=== PATIENT | female | born 1945 | race Caucasian/White ===

== ENCOUNTER → 2017-01-23 | Outpatient (REF) | payer MEDICARE, OTHER ==
[2017-01-23 17:43] LABS: MEAN CORPUSCULAR HEMOGLOBIN 28.8 pg (27.0-33.0); MEAN CORPUSCULAR HGB CONC 33.2 g/dl (32.0-36.5); MEAN CORPUSCULAR VOLUME 86.7 fl (80.0-96.0); PLATELET COUNT, AUTOMATED 355 k/mm3 (150-450); RED CELL DISTRIBUTION WIDTH 12.7 % (11.5-14.5); WHITE BLOOD COUNT 8.6 K/mm3 (4.0-10.0)
[2017-01-23 21:19] LABS: BASOPHILS 1 % (0-4); EOSINOPHILS 1 % (0-5)
[2017-01-23 21:25] LABS: ERYTHROCYTE SEDIMENTATION RATE 12 mm/hr (0-30)
== END ==
LOC: M LABDRAW1 15:44
PROVIDERS: ATTEND Orthopaedic Surgery
DX: M48.06 Spinal stenosis, lumbar region (principal)

== ENCOUNTER 2018-07-14 08:09 | Outpatient (RCR) | payer MEDICARE, OTHER ==
[2018-07-14] MEDS ORDERED: ASPI81TA85 PO (09:09)
[2018-07-14] MEDS ORDERED: AMLO10TA4 PO (09:09)
[2018-07-14] MEDS ORDERED: PLAV1TAB2 PO (09:09)
[2018-07-14] MEDS ORDERED: LEVO25TA5 PO (09:09)
[2018-07-14] MEDS ORDERED: VENTAER INH (09:09)
[2018-07-14] MEDS ORDERED: ATOR40TA75 PO (09:09)
[2018-07-14] MEDS ORDERED: METO37.5 PO (09:09)
[2018-07-14] MEDS ORDERED: MUCI600T31 PO (09:09)
[2018-07-14] MEDS ORDERED: NITR0.4D6 TD (09:09)
[2018-07-14] MEDS ORDERED: HYDR12.55 PO (09:09)
[2018-07-14] MEDS ORDERED: K-TA10TA2 PO (09:09)
[2018-07-14] MEDS ORDERED: ZYRTTAB8 PO (09:09)
[2018-07-14] MEDS ORDERED: TIOT18INH INH (09:09)
[2018-07-14] MEDS ORDERED: NEXI40CA PO (09:09)
[2018-07-14] MEDS ORDERED: VITA100067 PO (09:09)
[2018-07-14] MEDS ORDERED: SYMB16INH INH (09:09)
[2018-07-14] MEDS ORDERED: BUDE180INH INH (09:09)
[2018-07-14] MEDS ORDERED: SING10TA32 PO (09:09)
--- NOTE | 2018-07-14 10:18 | CARECAPL ---
Assessment Account #s: Initial Assessment General Diagnoses: Stent Date of event: Nov 03, 2017 Allergies: Coded Allergies: Atrovent (Verified Allergy, Severe, difficulty breathing, 07/14/18) Levaquin (Verified Allergy, Intermediate, joint pain, 07/14/18) Statins (Verified Allergy, Intermediate, leg cramps, 07/14/18) Penicillins (Verified Allergy, Mild, rash, 07/14/18) Vasotec (Verified Allergy, Mild, rash, 07/14/18) Date Entered Program: Jul 14, 2018 Risk strat for cardiac event: Low Exercise Date: Jul 14, 2018 Assessment: Initial Assessment Exercise Prescription Plan educate and increase endurance through exercise Modalities initiated: Nustep (mets 2.8 RPE 2), Arm Aerometer (mets 2.3 RPE 2), Dumbells (will add), Recumbent Bike (mets 3.2 RPE 2) Frequency: 2 Duration (Minutes) 30-60 minutes total exercise a day. 15-20 work intervals in minutes. prn rest intervals in minutes. Functional Capacity Goal Sustained Metabolic Equivalent of a task (MET) goal of 3.75-4.5 for 15-20 minutes. Intensity: 3-Moderate Progression (METS) Increase by: 0.5 METS every: 3-5 sessions Angina with ex: No Target Heart Rate rest + 35-40 Resistance Training: Yes Weight (pounds): 1 (will add 1 lb weights) Hypertension: Yes Hypertension controlled with: Medication Resting 160/83 Peak Exercise BP 160/80 Meds norvasc and metoprolol Medications Scheduled (Zyrtec-D Allergy/Congesti 5-120 mg), 1 TAB PO DAILY, (Reported) Amlodipine Besylate (Amlodipine Besylate), 10 MG PO DAILY, (Reported) Aspirin (Aspir-81), 81 MG PO DAILY, (Reported) Atorvastatin Calcium (Atorvastatin Calcium), 40 MG PO DAILY, (Reported) Budesonide (Pulmicort Flexhaler), 2 PUFF INH BID, (Reported) Budesonide/Formoterol (Symbicort 160-4.5 Mcg/Act), 2 PUFF INH BID, (Reported) Clopidogrel Bisulfate (Plavix), 75 MG PO DAILY, (Reported) Esomeprazole Magnesium Trihydr (Nexium), 40 MG PO BID, (Reported) Guaifenesin (Mucinex), 1,200 MG PO BID, (Reported) Hydrochlorothiazide (Hydrochlorothiazide), 12.5 MG PO DAILY, (Reported) Levothyroxine Sodium (Synthroid), 37.5 MCG PO DAILY, (Reported) Metoprolol Tartrate (Metoprolol Tartrate), 25 MG PO BID, (Reported) Montelukast Sodium (Singulair), 10 MG PO DAILY, (Reported) Nitroglycerin (Nitroglycerin), 0.4 MG TD DAILY, (Reported) Potassium Chloride (K-Tab), 2 TAB PO DAILY, (Reported) Tiotropium [place] Monohydrate (Spiriva Handihaler), 1.25 MCG INH DAILY, (Reported) Vitamin D (Vitamin D), 5,000 UNIT PO DAILY, (Reported) Scheduled PRN Albuterol Sulfate (Ventolin Hfa), 2 PUFF INH Q4-6HP PRN for wheezing, (Reported) Target Goals Individual exercise Rx (1) BP 140/90 or 130/80 if DM or CKD (1) Aerobic active 30+min 5 days per week (1) Nutrition Date: Jul 14, 2018 Assessment: Initial Assessment Lipid- med/supplement atorvastatin Diabetes Diabetes: No Monitor Blood Sugar at home: No Weight Management Weight (lbs): 165.2 Height (inches): 62 Waist Circumference (Inches): 39 BMI: 30.2 Weight goal: 135 Special Diet: low salt, low-fat Vitamin/Supplements: Multivitamin Alcohol: none Diet Access Tool: Rate your plate Score: 52 Intervention Elevating Grader Operator Consult: No Nurse/patient discussion: Yes Dietary Goals eat healthier portions and healthier foods Diet Class: No Education Eating Healthy Target goal LDL-C<100 if triglycerides are >200 Non-HDL-C should be <130 (1) LDL-C<70 for high risk patients (4) HbA1c<7% (1) BMI<25 Waist cir<40in M/<35in F (1) Education Date: Jul 14, 2018 Assessment: Initial Assessment Learning Barriers: cognitive (age related) Knowledge Test Score: 7 Quit: never smoked Tobacco Use Smokeless tobacco: No Intervention Referral to smoking cessation: No Individual education and couns: No Tobacco Adjunct: No Education class schedule given: No Attended education classes: No Education: CAD, Risk factors, med compliance, cardiac A&P, Angina S/S, Sexuality Target Goals Complete cessation of tobacco use (1). Psychosocial Date: Jul 14, 2018 Assessment: Initial Assessment Psych Test (Initial/Discharge) Tool Used: CESD Score: 0 Intervention Physician Consult: No Physician Referral: No Psychotropic medication none Stress Management Class: Yes Uses Stress Management Skills: Yes Education Education: Coping Techniques, S/S depression, Relaxation Techniques Target Goal Assess presence or absence of depression using a valid screening tool (1). Maximize coping skills (2). Positive support system (2). Patient/Program Goal Preventative Medication: Yes Aspirin, Yes Clopidogrel, Yes Beta blockade, Yes Statin/OTR lipid Lowering Fall Risk Assess: No Provider Assessment Session Number: 1 Provider Assessment: Proceed with rehab Lisseth Javier RN Jul 14, 2018 10:18
== END 2018-07-28 ==
LOC: M CR 08:09
PROVIDERS: ATTEND Family Medicine
DX: Z98.61 Coronary angioplasty status (principal)

== ENCOUNTER → 2018-08-01 | Outpatient (CLI) | payer MEDICARE, OTHER ==
[~2018-08-01] MED LIST: AMLO10TA5 PO; ASPI81TA85 PO; ATOR40TA75 PO; BUDE180INH INH; HYDR12.55 PO; K-TA10TA2 PO; LEVO25TA5 PO; METO37.5 PO; MUCI600T31 PO; NEXI40CA PO; NITR0.4D6 TD; PLAV1TAB2 PO; SING10TA32 PO; SYMB16INH INH; TIOT18INH INH; VENTAER INH; VITA100067 PO; ZYRTTAB8 PO
[2018-08-01 13:32] LABS: BLOOD UREA NITROGEN 20 MG/DL (7-18); CALCIUM LEVEL 9.2 MG/DL (8.8-10.2); CARBON DIOXIDE LEVEL 28 MEQ/L (21-32); CHLORIDE LEVEL 97 MEQ/L (98-107); CREATININE FOR GFR 0.72 MG/DL (0.55-1.30); GLOMERULAR FILTRATION RATE > 60.0 (>39); GLUCOSE, FASTING 87 MG/DL (70-100); POTASSIUM SERUM 3.5 MEQ/L (3.5-5.1); SODIUM LEVEL 134 MEQ/L (136-145)
== END ==
LOC: M LAB 11:47
PROVIDERS: ATTEND Family Medicine
DX: E03.9 Hypothyroidism, unspecified (principal)

== ENCOUNTER 2018-08-14 15:24 | Outpatient (RCR) | payer MEDICARE, OTHER ==
--- NOTE | 2018-08-11 14:33 | CARECAPL ---
Assessment Account #s: Re-Assessment I General Diagnoses: Stent Date of event: Nov 03, 2017 Physician: Everett Grigsby Allergies: Coded Allergies: Ipratropium (Verified Allergy, Severe, difficulty breathing, 07/14/18) Levofloxacin (Verified Allergy, Intermediate, joint pain, 07/14/18) Statins (Verified Allergy, Intermediate, leg cramps, 07/14/18) Enalapril (Verified Allergy, Mild, rash, 07/14/18) Penicillins (Verified Allergy, Mild, rash, 07/14/18) Date Entered Program: Jul 14, 2018 Risk strat for cardiac event: Low Exercise Date: Aug 11, 2018 Assessment: Re-Assessment I Exercise Prescription Modalities initiated: Nustep, Arm Aerometer, Dumbells, Recumbent Bike Frequency: 1 Duration (Minutes) minutes total exercise a day. work intervals in minutes. rest intervals in minutes. Functional Capacity Goal Sustained Metabolic Equivalent of a task (MET) goal of for minutes. Intensity: 3-Moderate Progression (METS) Increase by: METS every: sessions Angina with ex: No Resistance Training: Yes Weight (pounds): 1 Reps: 6-8 Hypertension: Yes Hypertension controlled with: Diet Medications Scheduled (Zyrtec-D Allergy/Congesti 5-120 mg), 1 TAB PO DAILY, (Reported) Amlodipine Besylate (Amlodipine Besylate), 10 MG PO DAILY, (Reported) Aspirin (Aspir-81), 81 MG PO DAILY, (Reported) Atorvastatin Calcium (Atorvastatin Calcium), 40 MG PO DAILY, (Reported) Budesonide (Pulmicort Flexhaler), 2 PUFF INH BID, (Reported) Budesonide/Formoterol (Symbicort 160-4.5 Mcg/Act), 2 PUFF INH BID, (Reported) Clopidogrel Bisulfate (Plavix), 75 MG PO DAILY, (Reported) Esomeprazole Magnesium Trihydr (Nexium), 40 MG PO BID, (Reported) Guaifenesin (Mucinex), 1,200 MG PO BID, (Reported) Hydrochlorothiazide (Hydrochlorothiazide), 12.5 MG PO DAILY, (Reported) Levothyroxine Sodium (Synthroid), 37.5 MCG PO DAILY, (Reported) Metoprolol Tartrate (Metoprolol Tartrate), 25 MG PO BID, (Reported) Montelukast Sodium (Singulair), 10 MG PO DAILY, (Reported) Nitroglycerin (Nitroglycerin), 0.4 MG TD DAILY, (Reported) Potassium Chloride (K-Tab), 2 TAB PO DAILY, (Reported) Tiotropium [place] Monohydrate (Spiriva Handihaler), 1.25 MCG INH DAILY, (Reported) Vitamin D (Vitamin D), 5,000 UNIT PO DAILY, (Reported) Scheduled PRN Albuterol Sulfate (Ventolin Hfa), 2 PUFF INH Q4-6HP PRN for wheezing, (Reported) Current BP 160/90 Med Change: No Education Goals Met: No (not attending on a regular basis) Target Goals Individual exercise Rx (1) BP 140/90 or 130/80 if DM or CKD (1) Aerobic active 30+min 5 days per week (1) Nutrition Date: Aug 11, 2018 Assessment: Re-Assessment I Current Weight (pounds): 165.2 Intervention Instructional Leader Consult: No Nurse/patient discussion: No Diet Class: No Referral to Diabetes education: No Referral to lipid clinic: No Referral to weight mangement p: No Education Goals Met: No Target goal LDL-C<100 if triglycerides are >200 Non-HDL-C should be <130 (1) LDL-C<70 for high risk patients (4) HbA1c<7% (1) BMI<25 Waist cir<40in M/<35in F (1) Education Date: Aug 11, 2018 Assessment: Re-Assessment I Intervention Education class schedule given: No Attended education classes: No Education Goals Met: No Target Goals Complete cessation of tobacco use (1). Psychosocial Date: Aug 11, 2018 Assessment: Re-Assessment I Stress Management Class: No Uses Stress Management Skills: No Target Goal Assess presence or absence of depression using a valid screening tool (1). Maximize coping skills (2). Positive support system (2). Fall Risk Assess: No Provider Assessment Session Number: 2 Provider Assessment: Proceed with rehab (has only attended 2 sessions sinceadmission) Dianna Walters RN Aug 11, 2018 14:33
== END 2018-08-28 ==
LOC: M CR 15:24
PROVIDERS: ATTEND Family Medicine
DX: Z98.61 Coronary angioplasty status (principal)

== ENCOUNTER → 2019-06-12 | Outpatient (CLI) | payer MEDICARE, OTHER ==
--- NOTE | 2019-06-23 19:42 | SLEEPCENT ---
DATE OF PROCEDURE: 06/12/2019 REFERRING PROVIDER: Dr. Michel INTERPRETATION Nocturnal polysomnography was performed for evaluation of sleep apnea syndrome symptoms and this patient with snoring and nonrestorative sleep. A total of 8 hours and 16 minutes of data was reviewed with 376.5 minutes of sleep identified. Sleep latency was 9.5 minutes. REM latency was 163 minutes. All stages of sleep were identified. Sleep efficiency was decreased to 77.3%. EKG showed normal sinus rhythm with an average of 78 beats per minute. Speeding and slowing was noted surrounding some respiratory events. No epileptiform discharge. This was a split night study. Part 1: Diagnostic study: There were 156 respiratory events identified of 10 seconds in duration or longer in the first 148.5 minutes of sleep for an apnea-hypopnea index (AHI) of 63. The events were predominantly obstructive apnea/hypopneas. Respiratory arousal index (LOYD) was elevated 45.7. Oxygen saturation liliam was 69%. Periodic limb movement index was 13.3. Part 2: C-PAP titration: Having clearly identified severe obstructive sleep apnea in the diagnostic study, the patient was fit with a [employer] Simplus full face mask of small size, 4 cm of water pressure was applied to the circuit and the lights were dimmed. C-PAP was taken to a high of 18 cm of water pressure, which markedly decreased the events though they were not eliminated. She was then changed to bilevel with an IPAP of 24 and EPAP 20. In reviewing all the data she appeared to do best on C-PAP at 18 cm of water pressure. On that pressure REM sleep was identified with a reasonably good waveform. Oxygen saturation liliam was 85%. AHI was 4.2 and OLYD was 2.8. No significant periodic limb movements. No supine sleep was seen throughout the entire polysomnogram. IMPRESSION: 1. Obstructive sleep apnea, severe, improved but not optimized on C-PAP at 18 cm of water pressure. 2. Periodic limb movements, mild. RECOMMENDATIONS Recommend the continuation of C-PAP therapy at the above pressure. After she has adapted to the C-PAP device, consideration could be given to having her return to the sleep disorder center for retitration versus overnight oximetry on C-PAP set up to evaluate the waveform and oxygenation. Clinical correlation will be necessary.
== END ==
LOC: M SLEEP 19:24
PROVIDERS: ATTEND Internal Medicine Pulmonary Disease
DX: G47.33 Obstructive sleep apnea (adult) (pediatric) (principal); G47.61 Periodic limb movement disorder

== ENCOUNTER → 2019-07-06 | Outpatient (CLI) | payer MEDICARE, OTHER ==
--- NOTE | 2019-07-06 13:06 | REPPI ---
Two-view chest: 07/06/2019. Indication: Cough. Comparison: None. Findings: There is no focal airspace consolidation. There is no pleural effusion or pneumothorax. There is a somewhat ill-defined opacity near the right hilum. The cardiomediastinal silhouette is otherwise unremarkable. Impression: Right hilar opacity which may represent a calcified lymph node. Dedicated chest CT is recommended. Electronically Signed by Peter Mcdaniels DO 07/06/2019 12:58 P
== END ==
LOC: M PLAIMG 11:34 → M PLALAB 11:34
PROVIDERS: ATTEND Internal Medicine Pulmonary Disease
DX: R05 Cough (principal); R91.8 Other nonspecific abnormal finding of lung field